=== PATIENT | male | born 1955 | race Caucasian/White ===

== ENCOUNTER → 2021-04-21 16:08 | Outpatient (CLI) | payer OTHER, SELFPAY ==
--- NOTE | ~2021-04-21 | XR_ITS ---
XR hip LT min 2V DATE: 04/21/2021 16:28 INDICATION: Left hip pain TECHNIQUE: AP and lateral views COMPARISON: None FINDINGS: There is severe left hip osteoarthritis with severe joint space narrowing, degenerative spu rring and some likely degenerative ossicles. Moderate right hip osteoarthritis. No fracture, dislocation or bone destruction is detected. The pubic symphysis and sacroiliac joints are intact. IMPRESSION: Severe left hip osteoarthritis Reviewed, dictated and finalized at location A.
== END ==
PROVIDERS: PCP Family Medicine; Visit Provider Physician Assistant
DX: M16.12 Unilateral primary osteoarthritis, left hip (principal)
CPT/HCPCS: 73502

== ENCOUNTER 2021-06-02 13:21 | Outpatient (CLI) | payer OTHER, SELFPAY ==
--- NOTE | ~2021-06-02 | XR_ITS ---
EXAMINATION: XR lg joint inject/asp w image DATE: 06/02/2021 14:39 INDICATION: Primary osteoarthritis of the left hip TECHNIQUE: A time-out was performed to verify the patient's name, date of , and procedure to b e performed. The procedure including the risks, benefits, and alternatives was discussed with the pat ient. Risks discussed included bleeding and infection. The patient understood the risks and agreed to proceed. The skin overlying the left hip joint was prepped and draped in usual sterile fashion. An esthetic was administered with 1% lidocaine subcutaneously. A 22 G needle was advanced under fluoros copic guidance into the joint. Injection of 1 mL of Omnipaque 240 confirmed intra-articular position of the needle. Subsequently, injectate consisting of 5 mm of a 4:1 mixture of 1% lidocaine: 80 mg/m L Depo-Medrol for a total dosage of 80 mg Depo-Medrol was instilled. Washout of contrast was seen con firming intra-articular administration. The needle was removed and the entry site was cleaned and vj ssed. There were no immediate complications. Fluoroscopy exposure time was 0.1 minutes. The total nu mber of images was 1. Total DAP was 0.738 mGycm^2 FINDINGS: Real-time fluoroscopy demonstrates the needle in the left hip joint. Patient's pain prior t o procedure:2/10. Patient's pain following the procedure: 0/10. IMPRESSION: 1. Successful left hip joint injection of local anesthetic and steroid with decrease in the patient's presenting pain. Reviewed, dictated and finalized at location A. IMPRESSION: 1. Successful left hip joint injection of local anesthetic and steroid with dec rease in the patient's presenting pain.
== END 2021-06-02 13:22 | disposition home or self-care (01) ==
PROVIDERS: PCP Family Medicine; Visit Provider Physician Assistant
DX: M25.552 Pain in left hip (principal); M16.12 Unilateral primary osteoarthritis, left hip; M70.62 Trochanteric bursitis, left hip
CPT/HCPCS: 20610; 77002; J1040; Q9966

== ENCOUNTER → 2023-01-11 15:58 | Outpatient (CLI) | payer OTHER, MEDICARE, SELFPAY ==
--- NOTE | ~2023-01-11 | MR_ITS ---
EXAMINATION: MR shoulder RT wo con DATE: 01/11/2023 16:49 INDICATION: Muscle strain at the right rotator cuff TECHNIQUE: Magnetic resonance imaging (MRI) of the right shoulder was performed without intravenous c ontrast. Sequences included axial PD-weighted FS FSE, coronal oblique PD-weighted FS FSE, coronal obl ique T2-weighted FS FSE, sagittal PD-weighted FS FSE, and sagittal T1-weighted SE. COMPARISON: None. FINDINGS: Coracoacromial arch: The acromion undersurface is curved in morphology (type II). Small anterior subacromial spur at the a cromial insertion of the coracoacromial ligament which is mildly thickened. Severe acromioclavicular osteoarthritis. Rotator cuff: There is marked attenuation of the distal 5 cm of the supraspinatus and infraspinatus tendons with 4 versus near full-thickness articular sided extending across the superior and middle facet footplates of the supraspinatus and infraspinatus tendons. There appears to be at least a few residual intact ap pearing bursal sided fibers of the tendons but is unclear whether the bursal surface remains continuo usly intact across the width of the tendon and remaining fibers are of indeterminate residual functio nal integrity. There is medial retraction of the supraspinatus and infraspinatus muscle bellies resul ting decrease cross-sectional area at the level of the neck of the glenoid. There is mild feathery mu scular edema but without significant fatty atrophy of the supraspinatus and infraspinatus muscles. Th e teres minor tendon is normal. Severe subscapularis tendinopathy with full-thickness tear involving the cephalad half of the tendon at its lesser tuberosity footplate where there is some osteophyte for mation. There is mild fatty atrophy in the cephalad aspect of the subscapularis muscle belly. Biceps tendon, glenoid labrum and glenohumeral cartilage: Severe tendinopathy and longitudinal split tearing of the intra and extra articular portion of the lo ng head biceps tendon. Additional partial thickness tearing of the intra-articular portion of the ten don which appears attenuated. There is diffuse degenerative tearing of the right glenoid labrum. Part ial-thickness cartilage loss along the cephalad margin of the glenoid with chondral swelling and some surface regularity along the inferior third . Small region of the deep chondral ulceration involving greater than 50% the cartilage thickness without degenerative subchondral changes at the superomedia l aspect of the humeral head. Fluid: Small glenohumeral joint effusion. No definitive fluid seen within the subacromial/subdeltoid bursa w hich suggests the articular side of the tendons may remain intact. No loose osteochondral bodies. Mil d bicipital tenosynovitis. Bones: Bone alignment is normal. No fracture or pathologic marrow replacing process. IMPRESSION: 1. Severe partial thickness articular sided versus potentially full-thickness tear extending across t he entire superior and middle facets of the supraspinatus and infraspinatus tendons. No definitive fl uid is seen in the subacromial/subdeltoid bursa and there does appear to be very thin intact fibers a long the bursal side of the tendon but which are of indeterminate residual functional integrity. 2. Full-thickness tear involving the cephalad half the lesser tuberosity footplate of the subscapular is tendon. 3. Severe tendinopathy and both longitudinal split tearing and partial thickness tearing of the long head biceps tendon. 4. Mild to moderate glenohumeral osteoarthritis with diffuse degenerative tearing of the glenoid labr um. 5. Severe acromioclavicular osteoarthritis. Reviewed, dictated and finalized at location A. IMPRESSION: 1. Severe partial thickness articular sided versus potentially full-thickness t ear e
== END ==
PROVIDERS: PCP Orthopaedic Surgery; Visit Provider Orthopaedic Surgery
DX: S46.011A Strain of muscle(s) and tendon(s) of the rotator cuff of right shoulder, initial encounter (principal); M75.01 Adhesive capsulitis of right shoulder; M19.011 Primary osteoarthritis, right shoulder; M75.21 Bicipital tendinitis, right shoulder; X58.XXXA Exposure to other specified factors, initial encounter
CPT/HCPCS: 73221